=== PATIENT | female | born 1995 | race Caucasian/White ===

== ENCOUNTER 2017-06-11 19:00 | Emergency (ER) | payer OTHER ==
[2017-06-11] MEDS ORDERED: NS 1,000 ML IV ONE (19:08)
[2017-06-11] MEDS ORDERED: LORazepam 2 MG/ML INJ ONE (19:08)
[2017-06-11 19:15] LABS: PLATELET COUNT 287 10^3/uL (150-400)
--- NOTE | 2017-06-11 19:15 | CPEKG ---
Heart Rate: 102 RR Interval: 588 P-R Interval: 124 QRSD Interval: 70 QT Interval: 324 QTC Interval: 423 P [place]: 67 QRS [place]: 11 T Wave [place]: 48 EKG Severity - OTHERWISE NORMAL ECG - EKG Impression: SINUS TACHYCARDIA Electronically Signed By: Rainer Chun 11-Jun-2017 20:52:46
--- NOTE | 2017-06-11 19:15 | CPEKG ---
Heart Rate: 102 RR Interval: 588 P-R Interval: 124 QRSD Interval: 70 QT Interval: 324 QTC Interval: 423 P [place]: 67 QRS [place]: 11 T Wave [place]: 48 EKG Severity - OTHERWISE NORMAL ECG - EKG Impression: SINUS TACHYCARDIA Electronically Signed By: Rainer Chun 11-Jun-2017 20:52:46
--- NOTE | 2017-06-11 19:16 | EDPHY ---
H & P Time Seen by Provider: 06/11/17 19:02 HPI/ROS: HPI Seizure. 22-year-old female by ambulance. This patient reports that she was smoking marijuana and also had tobacco in it through a Bong. Friends witnessed a tonic- clonic seizure with tongue biting shortly after she smoked this. This lasted for a minute to a minute half. EMS reports the patient was tachycardic on scene with mydriatic pupils and confusion. There is no history of trauma. The patient is now responding to questions appropriately. She denies any other ingestion. She denies that the marijuana was laced with anything other than smoking tobacco. She specifically denies methamphetamine, cocaine or bath salts. She reports that she thinks she has had 2 seizures in the past after smoking marijuana but not as bad as this. These were not reported to a medical professional or her parents. ROS: Constitutional: No fever, no chills. No weakness. Eyes: No discharge. No changes in vision. ENT: No sore throat. No nasal congestion or rhinorrhea. Respiratory: No cough. No shortness of breath. Cardiac: No chest pain, no palpitations. Gastrointestinal: No abdominal pain, no vomiting, no diarrhea. Genitourinary: No hematuria. No dysuria or increased frequency with urination. Musculoskeletal: No back pain. No neck pain. No myalgias or arthralgias. Skin: No rashes. Neurological: No headache. No focal weakness or altered sensation. Past medical history: Depression, anxiety, attention deficit hyperactivity disorder. She takes Zoloft, propranolol, Vyvanse and Adderall. Social history: Smoker. [employer]. Drinks alcohol occasionally but denies alcohol tonight. 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 Physical Exam: General Appearance: Alert, mildly sleepy. This patient is responding to questions appropriately and in full sentences. This patient appears well- hydrated and well-nourished. Head: Normocephalic atraumatic. Eyes: Pupils equal and round at 4 to 2 mm bilaterally, no pallor or injection. No lid edema, erythema or injection. ENT, Mouth: Mucous membranes are moist. The pharyngeal tissues are unremarkable. No edema or swelling. No asymmetry suggestive of abscess. No erythema or exudates. She has a puncture wound to the left dorsal aspect of her anterior tongue. This is not through and through. It measures a couple mm. It is not bleeding significantly. Respiratory: There are no retractions, lungs are clear to auscultation with good air movement bilaterally. Cardiovascular: Regular rate and rhythm. No murmur. Gastrointestinal: Abdomen is soft and nontender, no masses, bowel sounds normal. No focal tenderness at McBurney's point. No Rizo sign. Neurological: Motor sensory function is grossly intact. Cranial nerves are normal. Gait is normal. Skin: Warm and dry, no rashes. Musculoskeletal: Neck is supple and nontender. Extremities are symmetrical. All joints range without pain or impingement. Psychiatric: No agitation. No depression. Database: EKG: EKG time is 7:13 p.m.; EKG shows a narrow complex normal sinus tachycardia with a ventricular rate of 102. The SC, QRS, QT intervals are within normal limits. There are no ST-T wave changes indicative of ischemic or injury pattern. No evidence of right heart strain. Interpreted by me. Imaging: CT scan of head without contrast: Negative. Results were discussed with staff radiologist. Procedures: Procedure: Laceration repair. Verbal consent was obtained from the patient. The 1/2 cm laceration on the mid dorsal anterior tongue was anesthetized in the usual fashion. The wound was irrigated, draped and explored to its base with a gloved finger. There were no deep structures involved. No foreign body was identified. The wound was repaired with 1, 4.0 Vicryl rapide suture. The wound repair was tolerated well and there were no complications. The procedure was performed by myself. Emergency department course: IV placed. She was placed on a cardiac/vascular sonographer. awake overnight monitor shows a narrow complex tachycardia with ventricular rate of 123. EKG to be obtained. Patient will be sent for CT imaging. She was started on IV normal saline with 1 L to be given over the next hour. IV Ativan is at the bedside. 7:10 p.m., spoke with her father Dr. Justin Lang. He is on his way from [place]. 8:30 p.m., patient re-evaluated. Resting comfortably at this time. Tachycardia has resolved. awake overnight monitor shows a narrow complex normal sinus rhythm with ventricular rate of 83. Repeat neurologic Assessment is nonfocal. She is responding to questions appropriately. Her father Dr. Ramirez is at the bedside. Results of all diagnostic tests reviewed with the patient and her father in detail. Her father feels comfortable taking her home at this time. I feel she is safe for discharge. Follow-up with Neurology was discussed. All of their questions were answered. She was discharged in good condition. Differential Diagnosis: The differential diagnosis on this patient includes but is not limited to new onset seizure, medication reaction. This represents a partial list of diagnoses considered. These considerations are based on history, physical exam , past history, reassessment and diagnostic testing. Smoking Status: Never smoked Constitutional: Initial Vital Signs Temperature (C) 37.2 C 06/11/17 19:00 Heart Rate 115 H 06/11/17 19:00 Respiratory Rate 16 06/11/17 19:00 Blood Pressure 147/92 H 06/11/17 19:00 O2 Sat (%) 98 06/11/17 19:00 O2 Delivery Mode Room Air Allergies/Adverse Reactions: lactose Allergy (Intermediate, Verified 01/18/14 16:34) Abdominal Cramping Home Medications: Medication Instructions Recorded Adderall 10 MG (*) 07/27/16 VYVANSE 07/27/16 Zoloft 25mg (*) 07/27/16 Penicillin V Potassium [Pen Vk 500 mg PO QID #20 tab 06/11/17 500mg (*)] Propranolol HCl 06/11/17 Medical Decision Making - Diagnostics Imaging Results: Imaging Impressions Head CT 06/11/17 19:08 Impression: No acute abnormalities. Dr. Christy discussed these findings by telephone with Rainer Chun MD on 06/11/2017 at 20:12. - Data Points Laboratory Results: Laboratory Results 06/11/17 18:55 06/11/17 18:55 06/11/17 06/11/17 06/11/17 20:00 18:55 18:55 WBC RBC Hgb Hct MCV MCH MCHC RDW Plt Count MPV Neut % (Auto) Lymph % (Auto) [place] % (Auto) Eos % (Auto) Baso % (Auto) Nucleat RBC Rel Count Absolute Neuts (auto) Absolute Lymphs (auto) Absolute Monos (auto) Absolute Eos (auto) Absolute Basos (auto) Absolute Nucleated RBC Immature Gran % Immature Gran # Sodium 142 mEq/L mEq/L (134-144) Potassium 4.0 mEq/L mEq/L (3.5-5.2) Chloride 100 mEq/L mEq/L (97-110) Carbon Dioxide 12 mEq/l L mEq/l (22-31) Anion Gap 30 mEq/L H mEq/L (8-16) BUN 14 mg/dL mg/dL (7-23) Creatinine 0.9 mg/dL mg/dL (0.6-1.0) Estimated GFR > 60 Glucose 128 mg/dL H mg/dL (70-100) Calcium 10.2 mg/dL mg/dL (8.5-10.4) Beta HCG, Qual NEGATIVE Urine Opiates Screen NEGATIVE (NEGATIVE) Urine Barbiturates NEGATIVE (NEGATIVE) Ur Phencyclidine Scrn NEGATIVE (NEGATIVE) Ur Amphetamine Screen NON-NEGATIVE H (NEGATIVE) U Benzodiazepines Scrn NEGATIVE (NEGATIVE) Urine Cocaine Screen NEGATIVE (NEGATIVE) U Marijuana (THC) Screen NON-NEGATIVE H (NEGATIVE) Ethyl Alcohol < 10 mg/dL mg/dL (0-10) 06/11/17 18:55 WBC 13.53 10^3/uL H 10^3/uL (3.80-9.50) RBC 5.23 10^6/uL 10^6/uL (4.18-5.33) Hgb 15.8 g/dL g/dL (12.6-16.3) Hct 47.6 % H % (38.0-47.0) MCV 91.0 fL fL (81.5-99.8) MCH 30.2 pg pg (27.9-34.1) MCHC 33.2 g/dL g/dL (32.4-36.7) RDW 12.3 % % (11.5-15.2) Plt Count 287 10^3/uL 10^3/uL (150-400) MPV 11.2 fL fL (8.7-11.7) Neut % (Auto) 59.3 % % (39.3-74.2) Lymph % (Auto) 31.3 % % (15.0-45.0) [place] % (Auto) 6.1 % % (4.5-13.0) Eos % (Auto) 2.1 % % (0.6-7.6) Baso % (Auto) 0.6 % % (0.3-1.7) Nucleat RBC Rel Count 0.0 % % (0.0-0.2) Absolute Neuts (auto) 8.02 10^3/uL H 10^3/uL (1.70-6.50) Absolute Lymphs (auto) 4.24 10^3/uL H 10^3/uL (1.00-3.00) Absolute Monos (auto) 0.83 10^3/uL H 10^3/uL (0.30-0.80) Absolute Eos (auto) 0.28 10^3/uL 10^3/uL (0.03-0.40) Absolute Basos (auto) 0.08 10^3/uL 10^3/uL (0.02-0.10) Absolute Nucleated RBC 0.00 10^3/uL 10^3/uL (0-0.01) Immature Gran % 0.6 % % (0.0-1.1) Immature Gran # 0.08 10^3/uL 10^3/uL (0.00-0.10) Sodium Potassium Chloride Carbon Dioxide Anion Gap BUN Creatinine Estimated GFR Glucose Calcium Beta HCG, Qual Urine Opiates Screen Urine Barbiturates Ur Phencyclidine Scrn Ur Amphetamine Screen U Benzodiazepines Scrn Urine Cocaine Screen U Marijuana (THC) Screen Ethyl Alcohol Medications Given: Discontinued Medications Sodium Chloride (Ns) 1,000 mls @ 0 mls/hr IV ONCE ONE; Wide Open PRN Reason: Protocol Stop: 06/11/17 19:09 Last Admin: 06/11/17 19:16 Dose: 1,000 mls Penicillin V Potassium (Pen Vk) 500 mg PO EDNOW ONE PRN Reason: Protocol Stop: 06/11/17 20:35 Last Admin: 06/11/17 20:41 Dose: 500 mg Departure - Departure Disposition: Home, Routine, Self-Care Clinical Impression: New onset seizure Condition: Good Instructions: New-Onset Seizure in Adults (ED) Additional Instructions: Read and follow provided instructions. Follow-up with Neurology as discussed this week for re-evaluation and any further management. Call the office of Dr. Chris Delgado to arrange an appointment with him or 1 of his partners. Take medication as prescribed. No driving or operating machinery until cleared by Neurology. The suture that was placed in your tongue laceration will dissolve within 5-7 days. If it is still present after 7 days return to have it removed. Return to the emergency department for seizure, worsening headache or other serious concerns. Avoid alcohol, marijuana or other drugs. Referrals: Aureliano Delgado MD [Medical Doctor] - As per Instructions Prescriptions: Penicillin V Potassium [Pen Vk 500mg (*)] 500 mg PO QID #20 tab
[2017-06-11] MEDS ORDERED: PENICILLIN VK 500 MG TAB PO ONE (20:34)
[2017-06-11 20:46] VITALS: BP 141/81; PULSE 92; RESP 16; TEMP 98.4; O2SAT 99
== END 2017-06-11 20:45 | disposition home or self-care (01) ==
LOC: EDUNIT#
PROC: 0CQ7XZZ Repair Tongue, External Approach (ICD-10-PCS; principal; 2017-06-11)
DX: R56.9 Unspecified convulsions (principal); S01.512A Laceration without foreign body of oral cavity, initial encounter; F17.200 Nicotine dependence, unspecified, uncomplicated; E86.9 Volume depletion, unspecified; X58.XXXA Exposure to other specified factors, initial encounter; Y99.8 Other external cause status; Y93.89 Activity, other specified
CPT/HCPCS: 80305; G0480; J2060